=== PATIENT | female | born 1975 | race Two or more races ===

== ENCOUNTER → 2019-12-05 | Outpatient (CLI) | payer OTHER ==
--- NOTE | 2019-12-05 16:26 | CARD ---
MR#: [id number] Date of Study: 12/05/2019 Ordering Physician: GRAYSON BUTLER, Referring Physician: GRAYSON BULTER Tech: MichelleAnita Becerril APPROVED REPORT INDICATION Syncope RISK FACTORS Hypertension Hyperlipidemia Smoking Reason : Patient complained of pain PROCEDURE The patient underwent an Exercise Stress Test using the [place] Protocol. Blood pressure, heart rate, a nd EKG were monitored. An Echocardiogram was performed by pest control service technician in four stages in quad fashion. At peak stress four se lected images were obtained and placed side by side with resting images for comparison. STRESS ECHO FINDINGS The resting Echocardiogram showed normal left ventricular systolic contractility with an estimated Ej ection Fraction of about 55 %. The Resting Echocardiogram showed normal augmentation of myocardial wall segments using a 16 segment model. The Stress Echocardiogram left ventricular systolic contractility has an estimated Ejection Fraction of about 70%. Test Type: Exercise Stress Nurse/Tech: Cornelia Alatorre RN Test Indications: syncope Cardiac History and Allergies: No known cardiac Medications: see EMR Medical History: see EMR Resting ECG: SR Resting Heart Rate: 86 bpm Resting Blood Pressure: 165/93mmHg Pretest Chest Pain: Atypical angina Nurse/Tech Notes S1,S2 and lungs clear to auscultation. Patient states she has chest pain (mid chest) and stomach upse t for the last few days. Stress Symptoms No further chest pain or symptoms with exercise. POST EXERCISE Reason for Termination: Reached target heart rate Target HR: Yes Max HR: 180 bpm 101% of Maximum Predicted HR: 178 bpm Exercise duration: 8:44 min:sec, 3 Stage Exercise capacity: 10.1METs Max Blood Pressure: 186/89mmHg Blood Pressure response to exercise: Normal blood pressure response during stress. Heart Rate response to exercise: WNL Chest Pain: No. Arrhythmia: No. ST Change: No. INTERPRETATION Stress EKG Conclusion: Resting EKG showed a normal sinus rhythm with minimal nonspecific ST segment c hanges. The stress EKG showed no significant changes from baseline. No EKG evidence of stress-induced ischemia. No significant arrhythmias either at rest or with exertion. Preliminary Notification Critical Value: No <Conclusion> Good exercise tolerance. No reported chest pain with exertion No EKG evidence of stress-induced ischemia No significant arrhythmias Normal left ventricular systolic function at rest Normal left ventricular systolic response to exertion with no regional wall motion abnormalities Low risk treadmill stress echo testing Signed by : Burke Chen MD Electronically Approved : 12/05/2019 16:26:06
--- NOTE | 2019-12-08 10:41 | CARD ---
MR#: [id number] Date of Study: 12/05/2019 Ordering Physician: GRAYSON HERNANDEZ, Referring Physician: GRAYSON HERNANDEZ Tech: Ale Whalen RN APPROVED REPORT EXAM Tilt Table Attending Nurse: Ale Whalen RN HISTORY The Patient is a 44 year-old female with a history of syncope PROCEDURE After explaining the risks, benefits, and alternative options, informed consent was obtained from the patient. Base - lineRhythm: SinusBP: 166/120mmHg [id number]: SinusHR: 92 bpmBP: 166/085caKgR2 Sat: 98 % Yupc7095Ebjkgl: SinusHR: 86 bpmBP: 177/932jeOaQ1 Sat: 98 % Jgwa8542Otcvok: SinusHR: 82 bpmBP: 154/479xmYjA9 Sat: 97 % 80' Tilt14:33Rhythm: SinusHR: 96 bpmBP: 164/879izOvI4 Sat: 97 % 80' Tilt14:36Rhythm: SinusHR: 98 bpmBP: 163/437nsYlB3 Sat: 96 % 80' Gsam1798Bptxil: SinusHR: 90 bpmBP: 166/057wiXmB6 Sat: 96 % 80' Tilt14:41Rhythm: SinusHR: 103 bpmBP: 174/208wmDzA3 Sat: 96 % 80' Tilt14:46Rhythm: SinusHR: 101 bpmBP: 165/423nhWbC4 Sat: 96 % 80' Tilt14:51Rhythm: SinusHR: 96 bpmBP: 153/905qbWrA0 Sat: 97 % 80' Tilt14:56Rhythm: Sinus TachycardiaHR: 107 bpmBP: 164/910mwXeS3 Sat: 95 % 80' Ikxs8210Uvsvva: Sinus TachycardiaHR: 120 bpmBP: 167/863scVsQ5 Sat: 97 % 80' Tilt15:03Rhythm: Sinus TachycardiaHR: 110 bpmBP: 166/094vuDaJ4 Sat: 96 % 80' Fhns7973Wlsfze: Sinus TachycardiaHR: 100 bpmBP: 185/136wzHhF8 Sat: 98 % Flat15:08Rhythm: SinusHR: 100 bpmBP: 165/159vsIdL1 Sat: 97 % Etpg8749Zyiosn: SinusHR: 86 bpmBP: 140/01onEiD7 Sat: 96 % Flat15:11Rhythm: SinusHR: 84 bpmBP: 157/907swJsT1 Sat: 95 % hiapdwu73:16Rhythm: SinusHR: 92 bpmBP: 167/283zyWzA1 Sat: 99 % Pt had 2 episodes at 1501 and 1507 where it appeared that she had lost consciousness but her eyes wer e glazed and opened, both times her blood pressure went up-diastolic to greater than 120. pt states t hat her stomach cramps and she feels weightless when episodes happen. Spoke to Dr Hernandez after the test. Instructed pt to be very aware of s\suntil she speaks with MD next week CONCLUSION Tilt table test negative for neurocardiogenic syncope. Signed by : Grayson Hernandez, Electronically Approved : 12/08/2019 10:40:46
== END ==
LOC: CCL 12:30 → MERGE 13:00
PROVIDERS: ATTEND Internal Medicine Cardiovascular Disease
DX: R55 Syncope and collapse (principal); I10 Essential (primary) hypertension; E78.5 Hyperlipidemia, unspecified; F17.210 Nicotine dependence, cigarettes, uncomplicated
CPT/HCPCS: 93017; 93350; 93660

== ENCOUNTER → 2020-01-20 | Outpatient (CLI) | payer OTHER ==
--- NOTE | 2020-01-20 14:42 | CARD ---
MR#: [id number] Date of Study: 01/20/2020 Ordering Physician: GRAYSON HERNANDEZ, Referring Physician: GRAYSON HERNANDEZ, Tech: APPROVED REPORT PROCEDURE: Successful implantation of Med[employer]onic Reveal Linq loop recorder INDICATIONS: Syncope of uncertain etiology PROCEDURE DETAILS: An informed consent was obtained from patient. Patient was brought to the procedure suite and her le ft chest and shoulder were prepped and draped in the usual fashion. 20 mL of 2% lidocaine was infilt rated into the skin and subcutaneous tissues for local anesthesia. An incision was made in the left fourth ntercostal space 1 inch from midsternal line and using the introducer and deployer provided wi th the kit, a Medtronic Reveal Linq loop recorder serial number [id number] was placed in the subcuta neous tissue. Hemostasis was secured. Patient tolerated the procedure well. There were no immedia te complications. CONCLUSION: Successful implantation of Medtronic Linq loop recorder to rule out any arrhythmias as a cause of pat ient's recurrent syncope of uncertain etiology. Signed by : Grayson Hernandez, Electronically Approved : 01/20/2020 14:41:42
== END | disposition home or self-care (01) ==
LOC: LINQ 10:52
PROVIDERS: ATTEND Internal Medicine Cardiovascular Disease
DX: R55 Syncope and collapse (principal); I10 Essential (primary) hypertension; E78.5 Hyperlipidemia, unspecified; Z87.891 Personal history of nicotine dependence
CPT/HCPCS: 33285; C1764

== ENCOUNTER → 2021-03-23 | Outpatient (CLI) | payer OTHER ==
--- NOTE | 2021-03-24 12:12 | CARD ---
MR#: [id number] Date of Study: 03/23/2021 Ordering Physician: GRAYSON BUTLER, Referring Physician: GARYSON BUTLER, Tech: Pita Becerril [facility] APPROVED REPORT EXAM: Two-dimensional and M-mode echocardiogram with Doppler and color Doppler. Other Information Quality : GoodHR: 60bpm INDICATION Syncope 2D DIMENSIONS RVDd3.0 (2.9-3.5cm)Left Atrium(2D)2.9 (1.6-4.0cm) IVSd0.8 (0.7-1.1cm)Aortic Root(2D)2.5 (2.0-3.7cm) LVDd4.4 (3.9-5.9cm)LVOT Diameter2.0 (1.8-2.4cm) PWd0.8 (0.7-1.1cm)LVDs2.5 (2.5-4.0cm) FS (%) 43.7 %SV66.7 ml Aortic Valve AoV Peak Shawn.125.9cm/sAoV VTI26.7cm AO Peak GR.6.3mmHgLVOT VTI 19.84cm AO Mean GR.3mmHg Mitral Valve MV E Fshbvyga87.4cm/sMV E Peak Gr.4mmHg MV DECEL RQQK448fhTM A Pibvaitn50.4cm/s MV E Mean Gr.2mmHgE/A Ratio1.5 TDI Lateral E' P. V11.20cm/sMedial E' P. V11.65cm/s E/Lateral E'7.4E/Medial E'7.1 Tricuspid Valve TR P. Agtaclbc737rk/sRAP EKSTFBDV3ccSb TR Peak Gr.85rwGcKZQN63elRh Pulmonary Vein S1 Ubdcvzyn28.8cm/sS2 Sskzivsb56.39cm/s D2 Saqzetyi51.4cm/sPVa ajiyphqk80djus LEFT VENTRICLE The left ventricle is normal size. There is normal left ventricular wall thickness. The left ventricu lar systolic function is normal and the ejection fraction is within normal range. The Ejection Fracti on is 50-55%. There is normal LV segmental wall motion. The left ventricular diastolic function and f illing is normal for age. RIGHT VENTRICLE The right ventricle is normal size. There is normal right ventricular wall thickness. The right ventr icular systolic function is normal. ATRIA The left atrium size is normal. The right atrium size is normal. The interatrial septum is intact wit h no evidence for an atrial septal defect or patent foramen ovale as noted on 2-D or Doppler imaging. AORTIC VALVE The aortic valve is normal in structure and function. Doppler and Color Flow revealed no significant aortic regurgitation. There is no significant aortic valvular stenosis. Calculated aortic valve area is 2.36 cm2 with maximum pressure gradient of 9 mmHg and mean pressure gradient of 5 mmHg. MITRAL VALVE The mitral valve is normal in structure and function. There is no evidence of mitral valve prolapse. There is no mitral valve stenosis. Doppler and Color-flow revealed trace mitral regurgitation. TRICUSPID VALVE The tricuspid valve is normal in structure and function. Doppler and Color Flow revealed trace tricus pid regurgitation with an estimated PAP of 29 mmHg. There is no tricuspid valve stenosis. PULMONIC VALVE The pulmonic valve is not well visualized. Doppler and Color Flow revealed no pulmonic valvular regur gitation. GREAT VESSELS The aortic root is normal in size. The IVC is normal in size and collapses >50% with inspiration. PERICARDIAL EFFUSION There is no evidence of significant pericardial effusion. Critical Notification Critical Value: No <Conclusion> The left ventricle is normal size. The left ventricular systolic function is normal and the ejection fraction is within normal range. The Ejection Fraction is 50-55%. Doppler and Color Flow revealed no significant aortic regurgitation. There is no significant aortic valvular stenosis. Doppler and Color-flow revealed trace mitral regurgitation. Doppler and Color Flow revealed trace tricuspid regurgitation with an estimated PAP of 29 mmHg. Signed by : Burke Chen MD Electronically Approved : 03/24/2021 12:12:18
== END ==
LOC: ECHO 12:59
PROVIDERS: ATTEND Internal Medicine Cardiovascular Disease
DX: R55 Syncope and collapse (principal)
CPT/HCPCS: 93306